=== PATIENT | male | born 1940 | race Caucasian/White ===

== ENCOUNTER 2016-07-16 22:36 | Emergency (ER) | payer OTHER, MEDICARE, MEDICAID ==
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
[2016-07-17] MEDS ORDERED: Erythromycin Base 0.5% Ophth Oint 1 GM Tube EYELF ONE (01:29)
[2016-07-17 01:47] VITALS: BP 141/83
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
== END 2016-07-17 01:47 | disposition home or self-care (01) ==
LOC: MW.ED 22:36
DX: S06.0X0A Concussion without loss of consciousness, initial encounter (principal); S05.02XA Injury of conjunctiva and corneal abrasion without foreign body, left eye, initial encounter; V84.5XXA Driver of special agricultural vehicle injured in nontraffic accident, initial encounter; Y92.410 Unspecified street and highway as the place of occurrence of the external cause; Y99.0 Civilian activity done for income or pay
CPT/HCPCS: 36415; 70450; 71010; 72125; 72170; 80053; 80305; 81001; 84484; 85025; 85610; 93005; 99285; A9270; G0390; G0480; 99283

== ENCOUNTER → 2016-07-24 | Outpatient (CLI) | payer OTHER, MEDICARE, MEDICAID ==
[~2016-07-24] MED LIST: Gadobutrol 7.5 mMOL/7.5 ML SDV IVPUSH STA
--- NOTE | 2016-07-24 17:19 | MR ---
EXAMINATION: MRI of the brain with and without contrast, MR head without contrast. TECHNIQUE: Multiplanar and multisequence imaging of the brain without and following the administrati on of 7.5 mL of Gadavist. [id number] images obtained through the brain with the thick slab rotat ing MIP reconstructions. HISTORY: Cerebral infarction. FINDINGS: MRI brain: Cerebral hemispheres and the deep nuclei are without hemorrhage, mass, edema, enhancemen t or atrophy. There is a small area of T2 shine through noted within the posterior corpus callosum and along the left subcortical posterior frontal lobe. No abnormal diffusion restriction noted. Ther e is moderate periventricular and subcortical white matter foci noted, nonspecific. No extraaxial c ollections or hemorrhage. Ventricular system is of normal size and configuration without hydrocephalus. The brainstem and cere bellum are without hemorrhage, mass, edema, gliosis, enhancement or atrophy. The otomastoid airspaces are clear. No internal auditory canal or cerebellopontine angle masses or enhancement. The paranasal sinuses are clear. Globes, optic nerves, orbital apices, optic chiasm, optic tracts, and visual cortices are unremarka ble. Pituitary and sella turcica are unremarkable. No para- or retrosellar masses or cysts. No me ningeal enhancement. The craniocervical junction is unremarkable without Chiari malformation. No siderosis or evidence of vascular malformation. The calvarium is intact. MRA head: Low signal is noted within the vertebral arteries bilaterally however adequate flow voids are noted on the right on the T2-weighted images. The left vertebral artery is diminutive in size an d not well characterized. The flow void within the distal aspect of the left vertebral artery distal to the right, is not well-characterized. The distal internal carotid artery appears patent. The mid dle, posterior, and anterior cerebral arteries appear normal. There is a origin of the right p osterior cerebral artery. The anterior communicating artery appears normal. The left posterior cereb ral artery is diminutive in size. There is no aneurysm identified. IMPRESSION: 1. Extensive periventricular and subcortical white matter gliosis, nonspecific, however likely repre sent small vessel ischemic changes. 2. No definite evidence of an acute infarct. 3. Possible occlusion of a diminutive distal left vertebral artery. However the right vertebral devin ry is significantly dominant.
== END ==
LOC: MW.MRI 12:17
PROVIDERS: ATTEND Internal Medicine
DX: I63.9 Cerebral infarction, unspecified (principal); G93.89 Other specified disorders of brain
CPT/HCPCS: 70544; 70553; A9585

== ENCOUNTER → 2016-08-02 | Outpatient (CLI) | payer OTHER ==
[~2016-08-02] MED LIST changes: +Albuterol 0.083% 2.5 MG/3 ML Neb Soln NEB ONE; -Gadobutrol 7.5 mMOL/7.5 ML SDV IVPUSH STA
== END | disposition home or self-care (01) ==
LOC: MW.RT 13:32
PROVIDERS: ATTEND Internal Medicine
DX: I63.9 Cerebral infarction, unspecified (principal)
CPT/HCPCS: 94060

== ENCOUNTER → 2016-08-03 | Outpatient (CLI) | payer OTHER ==
--- NOTE | 2016-08-07 11:41 | ECHO ---
EXAM DATE: 08/03/16 The echocardiogram report can be seen in this patient's EMR (Electronic Medical Record) in the Reports section. VANESSA
== END ==
LOC: MW.US 08:54
PROVIDERS: ATTEND Internal Medicine
DX: I44.7 Left bundle-branch block, unspecified (principal)
CPT/HCPCS: 36415; 80048; 80061; 83036; 85025; 85610; 93306

== ENCOUNTER → 2016-08-07 | Outpatient (CLI) | payer OTHER ==
--- NOTE | 2016-08-07 07:59 | PCM.PRNOTE ---
- Free Text/Narrative Note: Date of service 08/07/2016 Exercise MIBI Indication syncope Sestamibi Tc99 25 MCi was given at the peak HR Patient was brought to the stress test lab in postabsorptive state verbal and paper consent was obtained from patient Vital signs at resting state blood pressure of 124/82with a heart rate of 81 EKG shows sinus rhythm, cLBBB, ST abnormalities II III aVF Maximal heart rate of 164 and target heart rate is 122 Patient reached the target heart rate, completed stage III Yury protocol EKG shows sinus rhythm, cLBBB, no further ST changes Peak blood pressure is 174/84 Total exercise time of 6.08 minutes METS 7 The test terminated due to symptoms of shortness of breath, no chest pain Impression Normal hemodynamics, normal chronotropic, poor exercise capacity, EKG was uninterpretable due to LBBB Plan Nuclear portion pending
--- NOTE | 2016-08-07 13:01 | NM ---
EXAMINATION: Nuclear medicine myocardial perfusion study HISTORY: Left bundle-branch block. PROCEDURE: Following intravenous administration of 0.4 mg of Lexiscan and 25.7 mCi of technetium 99m sestamib i, stress SPECT images including gating imaging was performed. FINDINGS: Stress myocardial SPECT images demonstrates mildly decreased uptake along the inferior wall extendin g slightly into the septal wall. There is likely a degree of diaphragmatic attenuation. Review of gated images demonstrates normal wall motion, contractility and wall thickening. The left ventricular ejection fraction is 54 %. The left ventricular chamber size is normal. IMPRESSION: 1. Mildly decreased uptake along the inferior wall and inferoseptal wall. Correlation with rest imag ing may be beneficial. 2. Normal ventricular chamber size and function with ejection fraction of 54 %.
--- NOTE | 2016-08-28 16:14 | NM ---
REPORT ADDENDUM ADDENDUM: Additional images were obtained at rest following the administration of 25.1 mCi of Tech 99M labeled sestamibi. FINDINGS/IMPRESSION: Overall the perfusion pattern rest is similar to the stress imaging with fixed decreased perfusion along the inferior wall. No evidence of reversible perfusion. Ejection fraction at rest is 48%. Wall motion appears unchanged. Addendum Dictated by: Giovani Culp MD <Electronically signed by Giovani Culp MD in [facility]> 08/09/16 1338 1335 , 1335 EXAMINATION: Nuclear medicine myocardial perfusion study HISTORY: Left bundle-branch block. PROCEDURE: Following intravenous administration of 0.4 mg of Lexiscan and 25.7 mCi of technetium 99m sestamibi, stress SPECT images including gating imaging was performed. FINDINGS: Stress myocardial SPECT images demonstrates mildly decreased uptake along the inferior wall extending slightly into the septal wall. There is likely a degree of diaphragmatic attenuation. Review of gated images demonstrates normal wall motion, contractility and wall thickening. The left ventricular ejection fraction is 54 %. The left ventricular chamber size is normal. IMPRESSION: 1. Mildly decreased uptake along the inferior wall and inferoseptal wall. Correlation with rest imaging may be beneficial. 2. Normal ventricular chamber size and function with ejection fraction of 54 %. Dictated by: Giovani Culp MD <Electronically signed by Giovani Culp MD in [facility]> 08/07/16 at 1258 , 1236 , 1236 Doc Number: [id number] Copies To: Amelia Matthews MD; PCP,None~ MTDD
== END ==
LOC: MW.NM 06:58
PROVIDERS: ATTEND Internal Medicine
DX: I44.7 Left bundle-branch block, unspecified (principal)
CPT/HCPCS: 78452; 93017; A9500; 78451; 78451-26

== ENCOUNTER → 2016-08-08 | Outpatient (CLI) | payer OTHER | END | disposition home or self-care (01) | LOC: MW.RT 08:13 | PROVIDERS: ATTEND Internal Medicine | DX: I44.7 Left bundle-branch block, unspecified (principal) | CPT/HCPCS: 93270 ==

== ENCOUNTER → 2016-08-09 | Outpatient (CLI) | payer OTHER ==
--- NOTE | 2016-08-28 16:21 | NM ---
REPORT ADDENDUM ADDENDUM: Additional images were obtained at rest following the administration of 25.1 mCi of Tech 99M labeled sestamibi. FINDINGS/IMPRESSION: Overall the perfusion pattern rest is similar to the stress imaging with fixed decreased perfusion along the inferior wall. No evidence of reversible perfusion. Ejection fraction at rest is 48%. Wall motion appears unchanged. Addendum Dictated by: Giovani Culp MD <Electronically signed by Giovani Culp MD in [place]> 08/09/16 1338 1335 , 1335 EXAMINATION: Nuclear medicine myocardial perfusion study HISTORY: Left bundle-branch block. PROCEDURE: Following intravenous administration of 0.4 mg of Lexiscan and 25.7 mCi of technetium 99m sestamibi, stress SPECT images including gating imaging was performed. FINDINGS: Stress myocardial SPECT images demonstrates mildly decreased uptake along the inferior wall extending slightly into the septal wall. There is likely a degree of diaphragmatic attenuation. Review of gated images demonstrates normal wall motion, contractility and wall thickening. The left ventricular ejection fraction is 54 %. The left ventricular chamber size is normal. IMPRESSION: 1. Mildly decreased uptake along the inferior wall and inferoseptal wall. Correlation with rest imaging may be beneficial. 2. Normal ventricular chamber size and function with ejection fraction of 54 %. Dictated by: Giovani Culp MD <Electronically signed by Giovani Culp MD in [place]> 08/07/16 at 1258 , 1236 , 1236 Doc Number: [id number] Copies To: Amelia Matthews MD; PCP,None~ MTDD
== END ==
LOC: MW.NM 09:14
PROVIDERS: ATTEND Internal Medicine
DX: I44.7 Left bundle-branch block, unspecified (principal); I63.9 Cerebral infarction, unspecified
CPT/HCPCS: 78451; A9500

== ENCOUNTER → 2016-08-14 | Outpatient (CLI) | payer MEDICARE, MEDICAID, OTHER ==
--- NOTE | 2016-08-15 14:42 | CR ---
EXAM DATE: 08/14/16 PATIENT'S AGE: 75 Patient: JESSICA HAMMOND Facility: [place], [place] Site . Site : 1940 Study: XRay Shoulder Left [id number]/25/2017 10:58:41 AM Ordering Physician: Lucy Feliz Final Report: Indication: Pain. Technique: Three views. 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 Prominent osteophytes of the humeral head. Somewhat narrow acromial humeral interval. Dswn-[id number]-pveqoeha osteoarthritis acromioclavicular joint with small posttraumatic or degenerative ossicle at the cephalad margin. No inferior osteophytes. No acute finding. Dictated by Yoav Doty MD @ Aug 15 2016 1:51PM (Electronic Signature) Report Signed by Proxy and Original Signed Document filed in the Medical Record. VANESSA
== END | disposition home or self-care (01) ==
LOC: MW.CHIM 10:28
PROVIDERS: ATTEND Internal Medicine
DX: M25.512 Pain in left shoulder (principal); M19.012 Primary osteoarthritis, left shoulder; M25.712 Osteophyte, left shoulder
CPT/HCPCS: 73030-26-LT; 73030-LT; 99214

== ENCOUNTER 2016-09-05 02:48 | Emergency (ER) | payer MEDICARE, MEDICAID ==
[2016-09-05] MEDS ORDERED: Sodium Chloride 0.9% 10 ML Syringe FLUSH PRN (03:00)
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
[2016-09-05] MEDS: Sodium Chloride 0.9% 2.5 ML Syringe FLUSH PRN ×2 (03:21→03:23)
[2016-09-05] MEDS ORDERED: Aspirin 81 MG Tab.Chew PO ONE (03:24)
[2016-09-05] MEDS ORDERED: Aspirin 81 MG Tab.Chew ONE (03:25)
[2016-09-05] MEDS ORDERED: ALTEPLASE IV SCH (03:45)
[2016-09-05 05:37] VITALS: BP 179/93
--- NOTE | 2016-09-05 10:28 | CT ---
EXAM DATE: 09/05/16 PATIENT'S AGE: 75 Patient: JESSICA HAMMOND Facility: [place], [place] Site . Site : 1940 Study: CT Head [id number]/[id number] 3:03:43 AM Ordering Physician: Doctor Roa Final Report: INDICATION: R sided numbness TECHNIQUE: CT Head without i.v. contrast. COMPARISON: 07/16/16 FINDINGS: CSF spaces: Within normal limits for age. Brain parenchyma: Mild, diffuse cortical atrophy is noted. There are low attenuation white matter changes, likely due to chronic microvascular disease. The brain parenchyma is normal in appearance with preservation of the nicole- white matter junction. No sign of mass, hemorrhage, or midline shift. Skull base and calvarium: The visualized paranasal sinuses are well aerated. The mastoid air cells are clear. The visualized orbits are grossly unremarkable. The patient is status post prior bilateral cataract removal. No skull fractures are seen. IMPRESSION: 1. No CT evidence acute infarcts, hemorrhage, or mass effect seen. Dictated by: Michael Barragan MD @ 09/05/2016 03:07:10 (Electronic Signature) Report Signed by Proxy. [facility]OSPITALCamille
== END 2016-09-05 04:17 ==
LOC: MW.ED 02:48
DX: I63.30 Cerebral infarction due to thrombosis of unspecified cerebral artery (principal); I11.0 Hypertensive heart disease with heart failure; I50.9 Heart failure, unspecified; E11.9 Type 2 diabetes mellitus without complications; I25.10 Atherosclerotic heart disease of native coronary artery without angina pectoris; I48.91 Unspecified atrial fibrillation; F17.210 Nicotine dependence, cigarettes, uncomplicated; Z79.82 Long term (current) use of aspirin; Z79.899 Other long term (current) drug therapy
CPT/HCPCS: 36415; 70450; 80053; 82962; 83735; 85025; 93005; 96365; 99285; A9270; J2997; 99284

== ENCOUNTER 2016-10-15 17:42 | Observation (INO) | payer MEDICARE, MEDICAID ==
[2016-10-15] MEDS ORDERED: Sodium Chloride 0.9% 10 ML Syringe FLUSH PRN (18:05)
[2016-10-15] MEDS ORDERED: Sodium Chloride 0.9% 2.5 ML Syringe FLUSH PRN (18:05)
--- NOTE | 2016-10-15 18:09 | EDM.PDOC ---
ED HPI GENERAL MEDICAL PROBLEM - General Chief Complaint: Chest Pain Stated Complaint: SEVERE RT ABDOMINAL PAIN/NUMBNESS RT HAND Time Seen by Provider: 10/15/16 18:04 - History of Present Illness INITIAL COMMENTS - FREE TEXT/NARRATIVE: HISTORY AND PHYSICAL: History of present illness: Patient 75 her mouth history of ischemic stroke who currently is undergoing rehabilitation for right hemiparesis he's been doing well and presents tonight after having been sitting in his recliner developed right-sided chest pain this is without associated shortness of breath palpitations nausea vomiting or diaphoresis he does not recall any trauma and states rehabilitation is benign without any particular strain or injury. Review of systems: As per history of present illness and below otherwise all systems reviewed and negative. Past medical history: As per history of present illness and as reviewed below otherwise noncontributory. Surgical history: As per history of present illness and as reviewed below otherwise noncontributory. Social history: No reported history of drug or alcohol abuse. Family history: As per history of present illness and as reviewed below otherwise noncontributory. Physical exam: HEENT: Atraumatic, normocephalic, pupils reactive, negative for conjunctival pallor or scleral icterus, mucous membranes moist, throat clear, neck supple, nontender, trachea midline. Lungs: Clear to auscultation, breath sounds equal bilaterally, chest nontender. Heart: S1S2, regular, negative for clicks, rubs, or JVD. Abdomen: Soft, nondistended, nontender. Negative for masses or hepatosplenomegaly. Negative for costovertebral tenderness. Pelvis: Stable nontender. Genitourinary: Deferred. Rectal: Deferred. Extremities: Atraumatic, negative for cords or calf pain. Neurovascular unremarkable. Neuro: Awake, alert, oriented. Cranial nerves II through XII unremarkable. Cerebellum unremarkable. Motor and sensory unremarkable throughout. Exam nonfocal. Diagnostics: CBC CMP troponin PT/INR chest x-ray EKG Therapeutics: IV O2 monitor Impression: #1 right-sided chest pain #2 history of ischemic stroke Definitive disposition and diagnosis as appropriate pending reevaluation and review of above. right side of chest Pain Score (Numeric/FACES): 7 - Related Data Allergies Allergy/AdvReac Type Severity Reaction Status Date / Time No Known Allergies Allergy Verified 10/15/16 17:48 Home Meds: Home Meds Aspirin 81 mg PO BRK 07/16/16 [History] Lisinopril 5 mg PO DAILY 07/16/16 [History] Past Medical History HEENT History: Reports: None Cardiovascular History: Reports: Hypertension Respiratory History: Reports: None Gastrointestinal History: Reports: None Genitourinary History: Reports: None Musculoskeletal History: Reports: None Neurological History: Reports: CVA Psychiatric History: Reports: None Endocrine/Metabolic History: Reports: None Hematologic History: Reports: None Oncologic (Cancer) History: Reports: None Dermatologic History: Reports: None - Infectious Disease History Infectious Disease History: Reports: None - Past Surgical History Cardiovascular Surgical History: Reports: Other (See Below) Other Cardiovascular Surgeries/Procedures: Holter Monitor Social & Family History - Family History Family Medical History: Noncontributory - Tobacco Use Smoking Status *Q: Current Every Day Smoker Years of Tobacco use: 25 Packs/Tins Daily: 0.5 - Caffeine Use Caffeine Use: Reports: Coffee, Tea - Recreational Drug Use Recreational Drug Use: No ED ROS GENERAL - Review of Systems Review Of Systems: ROS reveals no pertinent complaints other than HPI. ED EXAM, GENERAL - Physical Exam Exam: See Below (See dictation) Course - Vital Signs Last Recorded V/S: Last Vital Signs Temp 37.0 C 10/15/16 17:48 Pulse 64 10/15/16 17:48 Resp 18 10/15/16 17:48 BP 124/64 10/15/16 17:48 Pulse Ox 96 10/15/16 18:05 - Orders/Labs/Meds Orders: Active Orders 24 hr Category Date Time Status Patient Status [ADT] Stat ADT 10/15/16 18:56 Active Cardiac Monitoring [RC] . DIRECTED Care 10/15/16 18:04 Active EKG Documentation Completion [RC] STAT Care 10/15/16 18:05 Active Oxygen Therapy, ED [RC] ASDIRECTED Care 10/15/16 18:04 Active Pulse Oximetry [RC] ASDIRECTED Care 10/15/16 18:05 Active Ang Chest [CT] Stat Exams 10/15/16 18:56 Ordered Chest 1V Frontal [CR] Stat Exams 10/15/16 18:05 Taken Sodium Chloride 0.9% [Normal Saline] 1,000 ml Med 10/15/16 18:15 Active IV STAT Sodium Chloride 0.9% [Saline Flush] Med 10/15/16 18:05 Active 10 ml FLUSH ASDIRECTED PRN Sodium Chloride 0.9% [Saline Flush] Med 10/15/16 18:05 Active 2.5 ml FLUSH ASDIRECTED PRN Saline Lock Insert [OM.PC] Stat Oth 10/15/16 18:04 Ordered Medication Orders Sodium Chloride (Normal Saline) 1,000 mls @ 125 mls/hr IV STAT RORO Last Admin: 10/15/16 18:30 Dose: 125 mls/hr Sodium Chloride (Saline Flush) 10 ml FLUSH ASDIRECTED PRN PRN Reason: Keep Vein Open Sodium Chloride (Saline Flush) 2.5 ml FLUSH ASDIRECTED PRN PRN Reason: Keep Vein Open Labs: Laboratory Tests 10/15/16 10/15/16 10/15/16 Range/Units 18:16 18:16 18:16 WBC 6.35 (4.0-11.0) K/uL RBC 4.03 L (4.50-5.90) M/uL Hgb 12.9 L (13.0-17.0) g/dL Hct 37.7 L (38.0-50.0) % MCV 93.5 (80.0-98.0) fL MCH 32.0 (27.0-32.0) pg MCHC 34.2 (31.0-37.0) g/dL RDW Std Deviation 48.6 (28.0-62.0) fl RDW Coeff of Esther 14 (11.0-15.0) % Plt Count 235 (150-400) K/uL MPV 9.40 (7.40-12.00) fL Neut % (Auto) 57.2 (48.0-80.0) % Lymph % (Auto) 28.5 (16.0-40.0) % [place] % (Auto) 10.2 (0.0-15.0) % Eos % (Auto) 3.6 (0.0-7.0) % Baso % (Auto) 0.5 (0.0-1.5) % Neut # (Auto) 3.6 (1.4-5.7) K/uL Lymph # (Auto) 1.8 (0.6-2.4) K/uL [place] # (Auto) 0.7 (0.0-0.8) K/uL Eos # (Auto) 0.2 (0.0-0.7) K/uL Baso # (Auto) 0.0 (0.0-0.1) K/uL Nucleated RBC % 0.0 /100WBC Nucleated RBCs # 0 K/uL INR 1.04 (0.86-1.11) D-Dimer, Quantitative 0.72 H (0.0-0.52) mg/LFEU Sodium 135 L (136-146) mmol/L Potassium 4.0 (3.5-5.1) mmol/L Chloride 105 (98-110) mmol/L Carbon Dioxide 20 L (21-31) mmol/L BUN 29 H (6.0-23.0) mg/dL Creatinine 1.4 (0.6-1.5) mg/dL Est Cr Clr Drug Dosing 53.28 mL/min Estimated GFR (MDRD) 49.3 ml/min Glucose 108 (60-110) mg/dL Calcium 8.9 (8.8-10.8) mg/dL Total Bilirubin 0.4 (0.1-1.5) mg/dL AST 12 (5-40) IU/L ALT 8 (8-54) IU/L Alkaline Phosphatase 76 (40-150) Total Protein 6.6 (6.0-8.0) g/dL Albumin 3.5 (3.4-4.8) g/dL Globulin 3.1 (2.0-3.5) g/dL Albumin/Globulin Ratio 1.1 L (1.3-2.8) Meds: Medications Generic Name Dose Route Start Last Admin Trade Name Freq PRN Reason Stop Dose Admin Sodium Chloride 1,000 mls @ 125 mls/hr 10/15/16 18:15 10/15/16 18:30 Normal Saline IV 125 mls/hr STAT RORO Administration Sodium Chloride 10 ml 10/15/16 18:05 Saline Flush FLUSH ASDIRECTED PRN Keep Vein Open Sodium Chloride 2.5 ml 10/15/16 18:05 Saline Flush FLUSH ASDIRECTED PRN Keep Vein Open Departure - Departure Time of Disposition: 19:01 Disposition: Refer to Observation Condition: Good Clinical Impression: Chest pain - Discharge Information Forms: ED Department Discharge - My Orders Last 24 Hours: My Active Orders 10/15/16 18:04 Cardiac Monitoring [RC] . DIRECTED Oxygen Therapy, ED [RC] ASDIRECTED Saline Lock Insert [OM.PC] Stat 10/15/16 18:05 EKG Documentation Completion [RC] STAT Pulse Oximetry [RC] ASDIRECTED Chest 1V Frontal [CR] Stat Sodium Chloride 0.9% [Saline Flush] 10 ml FLUSH ASDIRECTED PRN Sodium Chloride 0.9% [Saline Flush] 2.5 ml FLUSH ASDIRECTED PRN 10/15/16 18:15 Sodium Chloride 0.9% [Normal Saline] 1,000 ml IV STAT 10/15/16 18:56 Patient Status [ADT] Stat Ang Chest [CT] Stat - Assessment/Plan Last 24 Hours: My Active Orders 10/15/16 18:04 Cardiac Monitoring [RC] . DIRECTED Oxygen Therapy, ED [RC] ASDIRECTED Saline Lock Insert [OM.PC] Stat 10/15/16 18:05 EKG Documentation Completion [RC] STAT Pulse Oximetry [RC] ASDIRECTED Chest 1V Frontal [CR] Stat Sodium Chloride 0.9% [Saline Flush] 10 ml FLUSH ASDIRECTED PRN Sodium Chloride 0.9% [Saline Flush] 2.5 ml FLUSH ASDIRECTED PRN 10/15/16 18:15 Sodium Chloride 0.9% [Normal Saline] 1,000 ml IV STAT 10/15/16 18:56 Patient Status [ADT] Stat Ang Chest [CT] Stat
[2016-10-15] MEDS ORDERED: Sodium Chloride 0.9% 1,000 ML IV SCH (18:15)
[2016-10-15] MEDS ORDERED: Iopamidol 612 MG/ML 50 ML SDV IVPUSH ONE (19:54)
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
[2016-10-15] MEDS ORDERED: Acetaminophen 325 MG Tab PO PRN (21:27)
[2016-10-15] MEDS ORDERED: Temazepam 15 MG Cap PO PRN (21:27)
[2016-10-15] MEDS ORDERED: Albuterol/Ipratropium 3.0-0.5 MG/3 ML Neb Soln NEB PRN (21:29)
[2016-10-15] MEDS ORDERED: Levofloxacin 500 MG Tab PO SCH (21:30)
[2016-10-15] MEDS ORDERED: atorvaSTATin 40 MG Tab PO SCH (22:30)
[2016-10-15] MEDS ORDERED: Pantoprazole 40 MG Tab.CR PO SCH (22:30)
--- NOTE | 2016-10-16 07:17 | PCM.DCSUM1 ---
Discharge Summary - Hospital Course Brief History: he was admitted for right sided chest pain. - Discharge Data Discharge Date: 10/16/16 Discharge Disposition: Home, Self-Care 01 Condition: Good - Discharge Diagnosis/Problem(s) (1) Bronchitis SNOMED Code(s): 71085124 ICD Code: J40 - BRONCHITIS, NOT SPECIFIED ACUTE OR CHRONIC Status: Acute Current Visit: Yes (2) Chest pain SNOMED Code(s): 27288516 ICD Code: R07.9 - CHEST PAIN, UNSPECIFIED Status: Acute Current Visit: Yes - Patient Summary/Data Hospital Course: His CTa of the chest was negative for pulmonary embolism. Troponin levels x two were normal He was noted to have had a recent productive cough. He was started on levaquin for bronchitis CXR showed increased lung volumes He is feeling much better at discharge. He is discharged home with the diagnosis of : bronchitis underlying COPD follow up on a routine basis with Dr Tray Bullock MD - Discharge Plan Home Medications: Home Meds Clopidogrel [Plavix] 1 tab PO DAILY 10/15/16 [History] Hydrocodone/Acetaminophen [Hydrocodon-Acetaminophen 5-325] 1 each PO Q8H PRN [History] Lisinopril/Hydrochlorothiazide [Lisinopril-Hctz 20-12.5 mg Tab] 1 tab PO DAILY 10/15/16 [History] Pantoprazole [ProTONIX] 40 mg PO BEDTIME 10/15/16 [History] atorvaSTATin [Lipitor] 40 mg PO BEDTIME 10/15/16 [History] Forms: ED Department Discharge Referrals: Tray Ayala DO [Primary Care Provider] - - Patient Data Vitals - Most Recent: Last Vital Signs Temp 97.8 F 10/16/16 04:00 Pulse 76 10/16/16 04:00 Resp 18 10/16/16 04:00 BP 116/65 10/16/16 04:00 Pulse Ox 95 10/16/16 04:00 Weight - Most Recent: 83.915 kg I&O - Last 24 hours: Intake & Output 10/15/16 10/16/16 10/16/16 22:59 06:59 14:59 Intake Total 350 Output Total 900 Balance -550 Lab Results - Last 24 hrs: Laboratory Results - last 24 hr 10/15/16 10/16/16 Range/Units 19:25 01:00 Troponin I < 0.10 < 0.10 (0.0-0.29) NG/ML Med Orders - Current: Current Medications Acetaminophen (Tylenol) 650 mg PO Q4H PRN PRN Reason: Pain (Mild 1-3)/fever Albuterol/Ipratropium (Duoneb 3.0-0.5 Mg/3 Ml) 3 ml NEB Q4HRRT PRN PRN Reason: Wheezing Atorvastatin Calcium (Lipitor) 40 mg PO BEDTIME [facility] Last Admin: 10/15/16 22:48 Dose: 40 mg Clopidogrel Bisulfate (Plavix) 75 mg PO DAILY [facility] Hydrochlorothiazide (Hydrochlorothiazide) 12.5 mg PO DAILY [facility] Sodium Chloride (Normal Saline) 1,000 mls @ 125 mls/hr IV STAT [facility] Last Admin: 10/15/16 18:30 Dose: 125 mls/hr Levofloxacin (Levaquin) 500 mg PO Q24H [facility] Last Admin: 10/15/16 22:30 Dose: 500 mg Lisinopril (Prinivil) 20 mg PO DAILY [facility] Pantoprazole Sodium (Protonix) 40 mg PO BEDTIME [facility] Last Admin: 10/15/16 22:48 Dose: 40 mg Sodium Chloride (Saline Flush) 10 ml FLUSH ASDIRECTED PRN PRN Reason: Keep Vein Open Sodium Chloride (Saline Flush) 2.5 ml FLUSH ASDIRECTED PRN PRN Reason: Keep Vein Open Temazepam (Restoril) 15 mg PO BEDTIME PRN PRN Reason: Sleep Discontinued Medications Aspirin (Aspirin) 81 mg PO DAILY [facility] Iopamidol (Isovue-300 (61%)) 50 ml IVPUSH ONETIME ONE Stop: 10/15/16 19:55 Last Admin: 10/15/16 19:56 Dose: 50 ml Lisinopril (Prinivil) 5 mg PO DAILY [facility] *Q Meaningful Use (DIS) - VTE *Q VTE Criteria *Q: - Stroke *Q Stroke Criteria *Q: - AMI *Q AMI Criteria *Q:
[2016-10-16 08:27] VITALS: BP 112/64
[2016-10-16] MEDS ORDERED: Clopidogrel 75 MG Tab PO SCH (09:00)
[2016-10-16] MEDS ORDERED: Lisinopril 5 MG Tab PO SCH (09:00)
[2016-10-16] MEDS ORDERED: Hydrochlorothiazide 12.5 MG Cap PO SCH (09:00)
[2016-10-16] MEDS ORDERED: Aspirin 81 MG Tab.Chew PO SCH (09:00)
[2016-10-16] MEDS ORDERED: Lisinopril 10 MG Tab PO SCH (09:00)
--- NOTE | 2016-10-16 10:47 | CR ---
EXAM DATE: 10/15/16 PATIENT'S AGE: 75 Patient: JESSICA HAMMOND Facility: [place], [place] Site . Site : 1940 Study: XRay Chest [id number]/26/2017 7:00:40 PM Ordering Physician: Nicole Cunningham Final Report: INDICATION: chest pain, sob TECHNIQUE: Chest 1 view. COMPARISON: 07/16/16 FINDINGS: Cardiovascular and mediastinum: Heart size and vasculature are normal in caliber and appearance. Mediastinum is within normal limits. Lungs and pleural space: Lungs are clear. No sign of infiltrate or mass. No sign of pleural effusion. No pneumothorax. Bones and soft tissues: No significant findings. IMPRESSION: Unremarkable chest. Dictated by: Romero Stanley MD @ 10/15/2016 19:26:14 (Electronic Signature) Report Signed by Proxy. VANESSA
--- NOTE | 2016-10-16 10:49 | CT ---
EXAM DATE: 10/15/16 PATIENT'S AGE: 75 Patient: JESSICA HAMMOND Facility: [place], [place] Site . Site : 1940 Study: CT Chest Angio [id number]/26/2017 8:00:56 PM Ordering Physician: Nicole Cunningham Final Report: HISTORY: Right-sided chest pain. TECHNIQUE: The chest was scanned using helical technique after 50 cc of Isovue-300. Sagittal and coronal reconstructions were performed. FINDINGS: Mediastinum and hilar: Thyroid is unremarkable. Calcified right hilar and subcarinal lymph nodes are present. No pathologic lymphadenopathy. Cardiovascular structures: Maximal diameter ascending thoracic aorta is 4.4 cm. The bolus to the pulmonary arteries is excellent. No pulmonary embolus identified. Coronary artery calcification is present. The heart at the upper limits of normal. No pericardial effusion. Lungs and pleura: Dependent atelectasis is present in the posterior lung bases. Linear scarring or atelectasis in the anterior right upper lobe. There are calcified granulomas seen within the right lower lobe. Mild emphysematous changes. Chest wall: No pathologic axillary lymphadenopathy. No chest wall mass. Upper abdomen: The visualized liver is homogeneous. Osseous structures: Degenerative changes of the glenohumeral joints. Peridiscal spurring seen within the thoracic spine. There is a 1 cm focus of patchy sclerosis within the T6 vertebral body. IMPRESSION: 1. No pulmonary embolus is identified. 2. Dilatation of the ascending thoracic aorta at 4.4 cm. 3. Calcified right hilar and subcarinal lymph nodes with calcified granuloma right lower lobe. 4. Coronary artery disease. 5. 1 cm cyst sclerotic focus seen within the left aspect of the T6 vertebral body. This is nonspecific in appearance. 6. Dependent atelectasis posterior lung bases. Small amount of linear atelectasis or scarring in the anterior right upper lobe. Dictated by Minna Biggs MD @ 10/15/2016 8:24:26 PM Dictated by: Minna Biggs MD @ 10/15/2016 20:25:04 (Electronic Signature) Report Signed by Proxy. VANESSA
== END 2016-10-16 08:53 | disposition home or self-care (01) ==
LOC: MW.ED 17:42 → MW.MS 18:56
PROVIDERS: ADMIT Family Medicine; ATTEND Family Medicine
DX: R07.89 Other chest pain (principal); J44.9 Chronic obstructive pulmonary disease, unspecified; I10 Essential (primary) hypertension; I25.2 Old myocardial infarction; E10.9 Type 1 diabetes mellitus without complications; F17.210 Nicotine dependence, cigarettes, uncomplicated; Z79.82 Long term (current) use of aspirin; Z79.899 Other long term (current) drug therapy; Z79.02 Long term (current) use of antithrombotics/antiplatelets
CPT/HCPCS: 36415; 71010; 71275; 80053; 84484; 85025; 85379; 85610; 93005; 96360; 96361; 99285; A9270; G0378; J7040; Q9967